=== PATIENT | male | born 1970 | race Caucasian/White ===

== ENCOUNTER 2017-05-25 07:46 | Inpatient (IN) | payer BC, OTHER ==
[~2017-05-25] VITALS: Ht 172.7 cm; Wt 73.5 kg
[2017-05-25 20:25] VITALS: BP 179/119
--- NOTE | 2017-05-25 20:25 | NUR ---
START OF SHIFT NOTE PATIENT SEEN IN INTAKE . SPEECH IS CLEAR AND ANSWER QUESTIONS APPROPRIATELY. AMBULATORY AND WITH STEADY GAIT. PATIENT STATES HE HAS ALLERGY TO CAT DANDER AND RAGWEED POLLEN. NO SEIZURE HISTORY. HE STATES HE'S HERE FOR W/D FROM ETOH (RED WINE AND VODKA) LAST DRINK WAS YESTERDAY . PATIENT NOTED ANXIOUS, UNABLE TO SIT STILL, RESTLESS AND TREMULOUS. VS BP- 179/119 P-104 T-98.0 R-20 PA-0/10. DENIES ANY PAIN . SpO2 98% IN RA. PATIENT DENIES HEADACHE , VISUAL DISTURBANCE OR CHEST PAIN. RELAXATION TECHNIQUE PROVIDED. NO UA PROVIDED AT THIS TIME. WILL CONTINUE TO ADMISSION ON 3RD FLOOR.
--- NOTE | 2017-05-25 20:47 | NUR ---
ADMISSION NOTE PATIENT IS A 46 YEAR OLD MALE WHO PRESENTS TO [facility] FOR SUPERVISED WITHDRAWAL FROM ETOH. HEIGHT IS 5'8 AND WEIGHT IS 162 LBS. PATIENT REQUESTED TO BE FULL CODE AND ON REGULAR DIET. LUNGS CLEAR AND ABDOMEN SOFT AND NON-DISTENDED. BOWEL SOUNDS ACTIVE ON ALL 4 QUADRANT. LAST BOWEL MOVEMENT YESTERDAY. BODY CHECK DONE. SKIN CLEAR AND INTACT. PATIENT REPORTS PMH OF ADHD, HTN, DIVERTICULITIS AND INGUINAL HERNIA (1 YEAR OLD). NO SEIZURE HISTORY. PATIENT STATES HE STARTED DRINKING AT AGE 15. HE DRINKS 375 ML OF VODKA AND 1 BOTTLE OF RED WINE (ALTERNATE) DAILY FOR 2 MONTHS. . LAST DRINK WAS YESTERDAY (3) 8OZ GLASSES OF [employer] AND COKE. HE STATES THAT THIS IS HIS FIRST TREATMENT. HE'S HERE BECAUSE HE WANTS TO STOP DRINKING . 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 HE'S PCP IS DR. KRISHNA DOCKERY. PATIENT DOESN'T SMOKE. HIS LONGEST SOBRIETY WAS A YEAR WHEN HE WAS 30 YEARS OLD. DENIES SI/HI. PATIENT BROUGHT HOME MEDS-RECONCILED. PATIENT WAS ORIENTED TO SURROUNDINGS AND HOW TO USE CALL LIGHT. WILL CALL MD AND WILL GIVE DETAIL REPORT. PATIENT WAS PLACED ON FALL/SEIZURE PRECAUTION. SAFETY MEASURES IN PLACE. CALL LIGHT IN REACH. WILL CONTINUE TO MONITOR. Addendum: 05/26/17 at 0347 by NITA ROWE LVN PATIENT WORKS AT [employer] PATIENT WAS SEEN BY DR. ROBISON AT INTAKE
[2017-05-25 21:10] LABS: BASOPHILS % (AUTO) 0.8 % (0.0-2.0); EOSINOPHILS # (AUTO) 0.1 K/uL (0.0-0.7); EOSINOPHILS % (AUTO) 1.7 % (0.0-7.0); HEMATOCRIT 42.4 % (40-50); HEMOGLOBIN 14.5 G/DL (14.0-18.0); LYMPHOCYTES # (AUTO) 1.4 K/UL (0.8-4.8); LYMPHOCYTES % (AUTO) 22.4 % (20.5-51.5); MEAN CORPUSCULAR HEMOGLOBIN 33.3 UUG (27.0-31.0); MEAN CORPUSCULAR HGB CONC 34 g/dL (32.0-37.0); MEAN CORPUSCULAR VOLUME 97.5 FL (82.0-92.0); MONOCYTES # (AUTO) 0.9 K/UL (0.1-1.30); MONOCYTES % (AUTO) 13.8 % (0.0-11.0); NEUTROPHILS # (AUTO) 3.8 K/UL (1.8-8.9); NEUTROPHILS % (AUTO) 61.3 % (38.5-71.5); PLATELET COUNT (AUTO) 268 K/UL (150-450); RED BLOOD CELL COUNT(AUTO) 4.35 MIL/UL (4.7-6.1); WHITE BLOOD COUNT (AUTO) 6.2 K/UL (4.0-11.2)
--- NOTE | 2017-05-25 21:20 | NUR ---
ONE TIME ATIVAN ADMINISTRATION PATIENT ANXIOUS, RESTLESS, TREMULOUS AND UNABLE TO SIT STILL . PRN ATIVAN GIVEN. CIWA 11. WILL MONITOR FOR EFFECTIVENESS
--- NOTE | 2017-05-25 21:20 | NUR ---
THIAMINE IM ADMINISTRATION PATIENT WAS GIVEN THIAMINE IM INJECTION ON LEFT DELTOID
[2017-05-25 21:22] LABS: ETHANOL < 3 MG/DL (0-0)
[2017-05-25 21:23] LABS: *AMPHETAMINE, URINE NEGATIVE (NEGATIVE); *BARBITURATE, URINE NEGATIVE (NEGATIVE); *CANNABINOID, URINE NEGATIVE (NEGATIVE); *COCCAINE, URINE NEGATIVE (NEGATIVE); *OPIATE, URINE NEGATIVE (NEGATIVE); *PHENCYCLIDINE SCREEN,URINE NEGATIVE (NEGATIVE)
[2017-05-25 21:25] LABS: ALANINE AMINOTRANSFERASE 143 U/L (16-63); ALKALINE PHOSPHATASE 152 U/L (50-136); AMYLASE 47 U/L (25-115); ASPARTATE AMINOTRANSFERASE 85 U/L (15-37); BILIRUBIN,TOTAL 0.8 mg/dL (0.2-1.0); CARBON DIOXIDE 30 mmol/L (21-32); CHLORIDE 98 mmol/L (98-107); GLUCOSE 95 mg/dL (74-106); MAGNESIUM 1.9 mg/dL (1.8-2.4); POTASSIUM 4.2 mmol/L (3.5-5.1); TOTAL PROTEIN, SERUM 8.9 g/dL (6.4-8.2); UREA NITROGEN, BLOOD 17 mg/dL (7-18)
--- NOTE | 2017-05-25 21:54 | NUR ---
PRN BENADRYL ADMINISTRATION PATIENT REQUESTS FOR SLEEP AID. PRN BENADRYL GIVEN. WILL MONITOR FOR EFFECTIVENESS
--- NOTE | 2017-05-25 22:20 | NUR ---
PRN HYDRALAZINE ADMINISTRATION PATIENT BLOOD PRESSURE 165/111 P- 94. PRN HYDRALAZINE GIVEN. WILL MONITOR EFFECTIVENESS
--- NOTE | 2017-05-25 22:21 | NUR ---
ONE TIME ATIVAN RE-ASSESSMENT PATIENT STATES HIS ANXIETY AND TREMORS SUBSIDED. HE STATES ATIVAN IS HELPFUL. CIWA IS NOW 4. WILL CONTINUE TO MONITOR
--- NOTE | 2017-05-25 22:54 | NUR ---
BALTAZAR SHELTON RE-ASSESSMENT PATIENT IN BED WITH HIS EYES CLOSED. RESPIRATION EVEN AND UNLABORED. SAFETY MEASURES IN PLACE. CALL LIGHT IN REACH. WILL CONTINUE TO MONITOR
[2017-05-26] VITALS: BP 134/93
[2017-05-26] MEDS ORDERED: NAPR220C15 PO (01:06)
[2017-05-26] MEDS ORDERED: NAPH15DR8 OP (01:06)
[2017-05-26] MEDS ORDERED: DIPH25CA83 PO (01:06)
[2017-05-26] MEDS ORDERED: NAPH30DR5 OP (01:06)
[2017-05-26] MEDS ORDERED: NEOM14.216 TP (01:06)
[2017-05-26] MEDS ORDERED: TETR-62 OP (01:06)
[2017-05-26] MEDS ORDERED: CETI-355 PO (01:06)
[2017-05-26] MEDS ORDERED: [UNRECOGNIZED DRUG - CODE] TP (01:06)
[2017-05-26] MEDS ORDERED: OMEP20TA5 PO (01:06)
[2017-05-26] MEDS ORDERED: HYDR28GE TP (01:06)
[2017-05-26 04:00] VITALS: BP 141/109
--- NOTE | 2017-05-26 04:05 | NUR ---
PRN HYDRALAZINE RE-ASSESSMENT PATIENT WAS GIVEN PRN HYDRALAZINE FOR BP-141/109 P-98. WILL MONITOR FOR EFFECTIVENESS
--- NOTE | 2017-05-26 07:20 | NUR ---
END OF SHIFT NOTE PATIENT IS A 46 YEAR OLD MALE, ADMITTED FOR ETOH DEPENDENCE. PATIENT IS ON 4 DAY ATIVAN TAPER, TO START TODAY. PATIENT WAS TREMULOUS, RESTLESS, ANXIOUS AND HYPERTENSIVE. PATIENT WAS GIVEN ONE TIME ATIVAN, PRN HYDRALAZINE X 2 FOR INCREASED BLOOD PRESSURE AND BENADRYL . THIAMINE IM INJECTION WAS GIVEN ON LEFT DELTOID, TOLERATED WELL . NO ADVERSE REACTION. ON FALL/SEIZURE PRECAUTION. SAFETY MEASURES IN PLACE. CALL LIGHT IN REACH. WILL CONTINUE TO MONITOR. PATIENT SLEPT 7 HOURS. FLUID INTAKE OF 855 ML. VOIDED X 2. BM X 1. LAST CIWA 2
[2017-05-26 08:00] VITALS: BP 132/90
--- NOTE | 2017-05-26 08:00 | NUR ---
START OF SHIFT: RECEIVED PT A/O X 4. HE PRESENTS WITH ANXIOUS MOOD AND CONGRUENT AFFECT. HE IS TREMULOUS. HE C/O ANXIETY ,FATIGUE AND RESTLESSNESS. ATIVAN TAPER IN PROGRESS. CIWA 11. ENCOURAGED INCREASED FLUIDS TO ASSIST IN FACILITATING DETOX PROCESS. PPD PLANTED TO [facility]. WILL CONTINUE TO MONITOR AND OFFER SUPPORT.
[2017-05-26 12:00] VITALS: BP 131/94
[2017-05-26 16:00] VITALS: BP 132/91
--- NOTE | 2017-05-26 16:38 | NUR ---
Client was prompted to attend daily group session by therapist. Client related that he was not feeling well and most likely would not attend.
--- NOTE | 2017-05-26 19:05 | NUR ---
END OF SHIFT: PT STARTED ATIVAN TAPER TODAY. LAST CIWA 10. HE C/O ANXIETY ,RESTLESSNESS AND SWEATS AND STATES THE ATIVAN IS EFFECTIVE IN REDUCING S/S OF W/D. HE WAS COMPLIANT WITH REST AND FLUIDS TODAY. PPD PLANTED TO [facility]. WILL PASS SHIFT REPORT TO ON.COMING NIGHT NURSE
--- NOTE | 2017-05-26 19:15 | NUR ---
Start of shift note Received report from day shift nurse. Pt is a 46 yo male, A+Ox4, presenting to [facility] for ETOH dependence. Pt has allergies to cat dander, ragweed, and pollen, is on Full code status, and on Regular diet. Pt is on Fall and Seizure precautions. Pt has HX of HTN, ADHD, Hernia SX, and Diverticulitis. Pt is on 4 day Ativan taper, tolerated well. No s/s of distress noted at this time. Respirations even and unlabored. Will continue to monitor.
--- NOTE | 2017-05-26 20:15 | NUR ---
PRN Benadryl Pt c/o inability to sleep and requested for PRN Benadryl. Medication given and tolerated well. Will reassess within 1 HR. Will continue to monitor.
[2017-05-26 20:42] VITALS: BP 104/80
--- NOTE | 2017-05-26 21:10 | NUR ---
PRN Benadryl Reassessment Medication effective. Pt is resting well in bed. No s/s of ASE/distress noted at this time. Respirations even and unlabored. Will continue to monitor.
[2017-05-27 00:06] VITALS: BP 110/78
[2017-05-27 04:13] VITALS: BP 103/72
--- NOTE | 2017-05-27 06:52 | NUR ---
End of shift note Pt is a 46 yo male, A+Ox4, presenting to [facility] for ETOH dependence. Pt has allergies to cat dander, ragweed, and pollen, is on Full code status, and on Regular diet. Pt is on Fall and Seizure precautions. Pt has HX of HTN, ADHD, Hernia SX, and Diverticulitis. Pt is on 4 day Ativan taper, tolerated well. Pt was given PRN Felipal @2014. Pt slept for a total of 9 HRS. Last CIWA: 3 @0400. No s/s of distress noted at this time. Respirations even and unlabored. Will endorse to day shift nurse.
[2017-05-27 07:06] LABS: HEPATITIS B SURFACE AG Negative (Negative)
--- NOTE | 2017-05-27 07:30 | NUR ---
START OF SHIFT Pt 46 y/o male admitted for etoh dependence. Pt received in room on bed with eyes closed resting, but easily arousable to name. Pt alert and oriented to name, place, and time. Perrla. Skin warm and slightly moist to touch. Respirations even and unlabored. Bilateral hand tremors noted, observed to be more prominent on right hand. It was reported that pt slept for 9 hours last night. Bed on lowest position with side rails x2 up for safety. Call light within reach. No distress noted at this time.
[2017-05-27 08:00] VITALS: BP 136/80
--- NOTE | 2017-05-27 12:39 | NUR ---
PRN Pt with hg=392/108. catapres po prn per MD order given and tolerated well.
[2017-05-27 12:45] VITALS: BP 136/100
--- NOTE | 2017-05-27 13:39 | NUR ---
PRN EVAL Pt po=222/86.
--- NOTE | 2017-05-27 13:51 | NUR ---
Therapist met with client, welcomed him to treatment and prompted him to come to groups. Client will come once he is rested.
[2017-05-27 16:00] VITALS: BP 134/85
--- NOTE | 2017-05-27 18:42 | NUR ---
END OF SHIFT Pt 46 y/o male admitted for etoh dependence. Pt alert and oriented to name, place, and time. Perrla. Skin warm and slightly moist to touch. Respirations even and unlabored. Bilateral hand tremors noted. Pt observed mostly isolative to room throughout the day. Pt did not attend group activity today. Pt was seen by MD today. Pt medication compliant and tolerated well. No ASE noted. Bed on lowest position with side rails x2 up for safety. Call light within reach. No distress noted at this time.
--- NOTE | 2017-05-27 19:12 | NUR ---
Start of shift note Received report from day shift nurse. Pt is a 46 yo male, A+Ox4, presenting to [facility] for ETOH dependence. Pt has allergies to cat dander, ragweed, and pollen, is on Full code status, and on Regular diet. Pt is on Fall and Seizure precautions. Pt has HX of HTN, ADHD, Hernia SX, and Diverticulitis. Pt is on 4 day Ativan taper, tolerated well. No s/s of distress noted at this time. Respirations even and unlabored. Will continue to monitor.
[2017-05-27 20:15] VITALS: BP 139/87
--- NOTE | 2017-05-27 21:26 | NUR ---
PRN Benadryl Pt c/o inability to sleep and requested for PRN Benadryl. Medication given and tolerated well. Will reassess within 1 HR. Will continue to monitor.
[2017-05-28] VITALS (7 sets, daily range): BP systolic 126–151; BP diastolic 81–103
--- NOTE | 2017-05-28 07:00 | NUR ---
End of shift note Pt is a 46 yo male, A+Ox4, presenting to [facility] for ETOH dependence. Pt has allergies to cat dander, ragweed, and pollen, is on Full code status, and on Regular diet. Pt is on Fall and Seizure precautions. Pt has HX of HTN, ADHD, Hernia SX, and Diverticulitis. Pt is on 4 day Ativan taper, tolerated well. Pt was given PRN Benadryl @2126. Pt slept for a total of 8 HRS. Last CIWA: 2 @0400. No s/s of distress noted at this time. Respirations even and unlabored. Will endorse to day shift nurse.
--- NOTE | 2017-05-28 07:30 | NUR ---
START OF SHIFT Pt 46 y/o male admitted for etoh dependence. Pt received in room on bed with eyes closed resting, but easily arousable to name. Pt alert and oriented to name, place, and time. Perrla. Skin warm and slightly moist to touch. Respirations even and unlabored. Bilateral hand tremors noted. It was reported that pt slept for 8 hours last night. Bed on lowest position with side rails x2 up for safety. Call light within reach. No distress noted at this time.
--- NOTE | 2017-05-28 12:27 | NUR ---
PRN Pt with fg=464/110 p=71. Catapres po prn per MD order given and tolerated well.
--- NOTE | 2017-05-28 13:27 | NUR ---
PRN EVAL Pt with kj=447/88.
--- NOTE | 2017-05-28 14:03 | NUR ---
Therapist prompted client to attend group today. Client agreed to attend group.
--- NOTE | 2017-05-28 18:25 | NUR ---
END OF SHIFT Pt 46 y/o male admitted for etoh dependence. Pt alert and oriented to name, place, and time. Perrla. Skin warm and slightly moist to touch. Respirations even and unlabored. Bilateral hand tremors noted. Pt observed mostly isolative to room throughout the day but did go to the patio once in the afternoon. Pt did not attend group activity today. Pt was seen by MD today. Pt medication compliant and tolerated well. No ASE noted. Bed on lowest position with side rails x2 up for safety. Call light within reach. No distress noted at this time.
--- NOTE | 2017-05-28 19:10 | NUR ---
Start of shift note Received report from day shift nurse. Pt is a 46 yo male, A+Ox4, presenting to [facility] for ETOH dependence. Pt has allergies to cat dander, and ragweed pollen, is on Full code status, and on Regular diet. Pt is on Fall and Seizure precautions. Pt has HX of HTN, ADHD, Hernia SX, and Diverticulitis. Pt is on 4 day Ativan taper, tolerated well. No s/s of distress noted at this time. Respirations even and unlabored. Will continue to monitor.
--- NOTE | 2017-05-28 21:08 | NUR ---
PRN Benadryl and Clonidine Pt noted with B/P 151/103 and c/o inability to sleep. PRN Benadryl and Clonidine given and tolerated well. Will reassess within 1 HR. Will continue to monitor.
--- NOTE | 2017-05-28 22:05 | NUR ---
PRN Benadryl and Clonidine Reassessment Medications effective. Pt is resting in bed with B/P 131/84. No s/s of ASE/distress noted at this time. Respirations even and unlabored. Will continue to monitor.
[2017-05-29] VITALS (8 sets, daily range): BP systolic 120–164; BP diastolic 81–114
--- NOTE | 2017-05-29 07:00 | NUR ---
End of shift note Pt is a 46 yo male, A+Ox4, presenting [facility] for ETOH dependence. Pt has allergies to cat dander, ragweed, and pollen, is on Full code status, and on Regular diet. Pt is on Fall and Seizure precautions. Pt has HX of HTN, ADHD, Hernia SX, and Diverticulitis. Pt is on 4 day Ativan taper, tolerated well. Pt was given PRN Benadryl @2108. Pt slept for a total of 8 HRS. Last CIWA: 2 @0400. No s/s of distress noted at this time. Respirations even and unlabored. Will endorse to day shift nurse.
--- NOTE | 2017-05-29 07:30 | NUR ---
START OF SHIFT Pt 46 y/o male admitted for etoh dependence. Pt received in room on bed with eyes closed resting, but easily arousable to name. Pt alert and oriented to name, place, and time. Perrla. Skin warm and slightly moist to touch. Respirations even and unlabored. Bilateral hand tremors noted slightly. It was reported that pt slept for 8 hours last night. Bed on lowest position with side rails x2 up for safety. Call light within reach. No distress noted at this time.
--- NOTE | 2017-05-29 09:06 | NUR ---
PRN Pt states has dry , itchy eyes. Visine eye gtt prn per MD order given and tolerated well.
--- NOTE | 2017-05-29 10:06 | NUR ---
PRN EVAL Pt states bilateral eyes is not dry or itchy at this time.
--- NOTE | 2017-05-29 18:32 | NUR ---
END OF SHIFT Pt 46 y/o male admitted for etoh dependence. Pt alert and oriented to name, place, and time. Perrla. Skin warm and slightly moist to touch. Respirations even and unlabored. Bilateral hand tremors noted. Pt observed mostly isolative to room throughout the day but did attend group activity. Pt was seen by MD today. Pt medication compliant and tolerated well. No ASE noted. Bed on lowest position with side rails x2 up for safety. Call light within reach. No distress noted at this time.
--- NOTE | 2017-05-29 20:00 | NUR ---
Start of Shift Pt is a 46 year old male admitted for ETOH dependence, placed on Ativan taper. Pt reported consuming Vodka 375ml and Red Wine 1 bottle daily. PMH: HTN, ADHD, Hernia surgery and Diverticulitis. Pt reports allergies to Cat dander and ragweed pollen. Upon assessment, pt reports feeling mildly anxious, skin is flushed, respirations even/unlabored, denies SOB/chest pain, denies n/v/d, medications due, safety measures in place, call light within reach, side rails up x2, bed locked and in low position. Will continue to monitor.
--- NOTE | 2017-05-29 20:21 | NUR ---
PRN Administration BP 164/114, pulse 95 Hydralazine 50mg PRN administered for elevated BP. Maalox 30ml PRN administered for reports of heartburn. Safety measures in place. Will continue to monitor.
--- NOTE | 2017-05-29 21:30 | NUR ---
PRN Reassessment/Administration Pt reports relief of heartburn BP 156/99, pulse 100 Clonidine 0.1mg PRN administered for elevated BP. Safety measures in place. Will continue to monitor.
--- NOTE | 2017-05-29 22:37 | NUR ---
PRN Reassessment/Administration BP 135/87, pulse 87 Clonidine effective. Pt requests sleeping aid, Benadryl 50mg PRN administered. Safety measures in place. Will continue to monitor.
--- NOTE | 2017-05-29 23:37 | NUR ---
PRN Reassessment Upon reassessment, pt is in bed with eyes closed, respirations even/unlabored. Safety measures in place. Will continue to monitor.
[2017-05-30] VITALS: BP 128/81
--- NOTE | 2017-05-30 | NUR ---
Vital Signs/CIWA deferred BP 128/81, pulse 82, resp 17, Spo2 98% room air, temp 98.1, no pain CIWA deferred due to pt sleeping, to assess while pt is awake as ordered. Safety measures in place. Will continue to monitor.
[2017-05-30 04:00] VITALS: BP 130/82
--- NOTE | 2017-05-30 04:00 | NUR ---
Vital Signs/CIWA deferred BP 130/82, pulse 80, resp 16, Spo2 98% room air, temp 98, no pain CIWA deferred due to pt sleeping, to assess while pt is awake as ordered. Safety measures in place. Will continue to monitor.
--- NOTE | 2017-05-30 07:00 | NUR ---
End of Shift Pt is a 46 year old male admitted for ETOH dependence, placed on Ativan taper. Pt reported consuming Vodka 375ml and Red Wine 1 bottle daily. PMH: HTN, ADHD, Hernia surgery and Diverticulitis. Pt reports allergies to Cat dander and ragweed pollen. During shift, pt reported feeling mildly anxious, skin is flushed scheduled taper medications administered, effective in management of s/s of withdrawal as reported per pt, CIWA 1. Hydralazine 50mg PRN and Clonidine 0.1mg PRN administered for elevated BP effective in decreased BP. Maalox 30ml PRN and Benadryl 50mg PRN administered for heartburn and sleep - effective. Pt slept for 5 hours, intake of 1084 ml PO, voids x3 and stool x0. Safety measures in place, call light within reach, side rails up x2, bed locked and in low position. Endorsed to day shift nurse.
--- NOTE | 2017-05-30 07:25 | NUR ---
Start of Shift Report from night nurse: pt is a 46 y/o male here for Etoh r/t vodka and 1 bottle of wine daily for 2 months; Pt is on an Ativan taper with last day today. Pt is a full code, regular diet, allergic to cats and pollen. Fall and Seizure precautions ordered. HHx: HTN , ADHD, hernia repair and Diverticulitis. V/S not stable with PRN Hydralazine and Clonidine given last night as night nurse states that it was effective. PRN Benadryl and MOM given last night. Skin is intact. No new orders or recommendations endorsed. Last CIWA 1. Pt is asleep in room. Will cont. to monitor the pt.
[2017-05-30 08:00] VITALS: BP 121/84
--- NOTE | 2017-05-30 09:30 | NUR ---
PRN Medication Pt is in room eating breakfast and c/o bilateral dry eyes; PRN Visine given as ordered. Reassess in 1H.
--- NOTE | 2017-05-30 10:30 | NUR ---
Reassessment Pt denies dry eyes; Visine is effective. Will cont. to monitor the pt.
[2017-05-30 12:00] VITALS: BP 138/94
[2017-05-30] MEDS ORDERED: AMLO5TAB2 PO (15:04)
[2017-05-30] MEDS ORDERED: DIPH50CA37 PO (15:04)
[2017-05-30] MEDS ORDERED: HYDR-3895 PO (15:04)
[2017-05-30] MEDS ORDERED: CLON0.1T14 PO (15:04)
[2017-05-30 16:00] VITALS: BP 133/95
--- NOTE | 2017-05-30 16:44 | NUR ---
PRN Naphazoline/Phenir Opht 1 drop to each eye for red, itchy eyes. Primary nurse to reassess in an hour. Call light within reach.
--- NOTE | 2017-05-30 17:45 | NUR ---
Reassessment Pt denies dry eyes; Visine is effective. Will cont. to monitor the pt.
--- NOTE | 2017-05-30 19:35 | NUR ---
End of Shift Report to night nurse: pt is a 46 y/o male here for Etoh r/t vodka and 1 bottle of wine daily for 2 months; Pt is on an Ativan taper with last day today. Pt is a full code, regular diet, allergic to cats and pollen. Fall and Seizure precautions ordered. HHx: HTN, ADHD, hernia repair and Diverticulitis. V/S stable during my shift and no PRN BP meds given during my shift. PRN Visine given and was effective. Skin is intact. No new orders for d/c tomorrow. Last CIWA 0.
[2017-05-30 20:00] VITALS: BP 138/96
--- NOTE | 2017-05-30 20:00 | NUR ---
Start of Shift Pt is a 46 year old male admitted for ETOH dependence, placed on Ativan taper, completed. Pt reported consuming Vodka 375ml and Red Wine 1 bottle daily. PMH: HTN, ADHD, Hernia surgery and Diverticulitis. Pt reports allergies to Cat dander and ragweed pollen. Upon assessment, pt reports feeling ready for the step in his treatment, respirations even/unlabored, denies SOB/chest pain, denies n/v/d, safety measures in place, call light within reach, side rails up x2, bed locked and in low position. Will continue to monitor.
--- NOTE | 2017-05-30 21:26 | NUR ---
PRN Administration Pt requests aid to sleep. Benadryl 50mg PRN administered. Safety measures in place, will continue to monitor.
--- NOTE | 2017-05-30 22:26 | NUR ---
PRN Reassessment Upon reassessment, pt is in bed with eyes closed, respirations even/unlabored. Safety measures in place. Will continue to monitor.
[2017-05-31] VITALS: BP 127/88
--- NOTE | 2017-05-31 | NUR ---
Vital Signs/CIWA deferred BP 127/88, pulse 98, resp 16, Spo2 97% room air, temp 98.1, no pain CIWA deferred due to pt sleeping, to assess while pt is awake as ordered. Safety measures in place. Will continue to monitor.
[2017-05-31 04:00] VITALS: BP 126/87
--- NOTE | 2017-05-31 07:00 | NUR ---
End of Shift Pt is a 46 year old male admitted for ETOH dependence, placed on Ativan taper, completed. Pt reported consuming Vodka 375ml and Red Wine 1 bottle daily. PMH: HTN, ADHD, Hernia surgery and Diverticulitis. Pt reports allergies to Cat dander and ragweed pollen. During shift, pt reported feeling ready for the step in his treatment. Pt displays no s/s of acute withdrawal, CIWA 0. Benadryl 50mg PRN administered for sleep, effective. Pt slept for 8 hours, intake of 1579 ml PO, voids x3 and stool x0. Pt is scheduled for discharge today.Safety measures in place, call light within reach, side rails up x2, bed locked and in low position. Endorsed to day shift nurse.
--- NOTE | 2017-05-31 07:30 | NUR ---
Start of Shift Report from night nurse with update: pt is a 46 y/o male here for Etoh r/t vodka and 1 bottle of wine daily for 2 months; Pt is on an Ativan taper with last day today. Pt is a full code, regular diet, allergic to cats and pollen. Fall & Seizure precautions ordered. HHx: HTN, ADHD, hernia repair and Diverticulitis. V/S stable and no PRN BP meds needed last night 6. No PRN's given last night. Skin is intact. New orders for the pt to get d/c'd today. Last CIWA 0. Pt is awake in room & getting ready for d/c today.
[2017-05-31 08:00] VITALS: BP 134/84
[2017-05-31 08:33] VITALS: BP 134/84
--- NOTE | 2017-05-31 09:27 | NUR ---
Discharge Pt is A&O x 4, ambulatory independently. Features symmetrical, PERRLA 3mm, No MELLO, no N/V or dizziness noted. Pt denies chest pain. V/S stable. No SOB noted. Skin is intact. Pt Voided. No w/d S/sx present. Pt given belongings, d/c summary packet and home medications given. Pt chaperoned to the lobby to the "[employer]" private ride and transported to the "[facility]".
== END 2017-05-31 09:27 | DRG 895 ==
LOC: SRC 19:45
PROVIDERS: ADMIT Internal Medicine; ATTEND Internal Medicine
PROC: HZ2ZZZZ Detoxification Services for Substance Abuse Treatment (ICD-10-PCS; principal; 2017-05-25)
PROC: HZ31ZZZ Individual Counseling for Substance Abuse Treatment, Behavioral (ICD-10-PCS; 2017-05-26)
PROC: HZ41ZZZ Group Counseling for Substance Abuse Treatment, Behavioral (ICD-10-PCS; 2017-05-28)
DX: F10.230 Alcohol dependence with withdrawal, uncomplicated (principal); K70.9 Alcoholic liver disease, unspecified; I15.9 Secondary hypertension, unspecified; F17.220 Nicotine dependence, chewing tobacco, uncomplicated; Y90.0 Blood alcohol level of less than 20 mg/100 ml; K57.90 Diverticulosis of intestine, part unspecified, without perforation or abscess without bleeding; Z90.49 Acquired absence of other specified parts of digestive tract; Z82.49 Family history of ischemic heart disease and other diseases of the circulatory system; Z81.1 Family history of alcohol abuse and dependence
CPT/HCPCS: 36415; 70030-TC; 80307; 83735; 85025; 86580; 86592; 86705; 86803; 87340; 87806; G0480; J3411; Q0163